=== PATIENT | female | born 1980 | race Caucasian/White ===

== ENCOUNTER 2020-06-03 06:01 | Day surgery (SDC) | payer MEDICAID, SELFPAY ==
--- NOTE | 2020-04-12 17:25 | PCM.HPOB.BLA ---
- Problem List (1) Menorrhagia Status: Acute History and Physical Date of Admission: 04/15/20 DATE OF SERVICE: April 07, 2020 ? PROBLEM:?Menorrhagia ? DIAGNOSIS:?Menorrhagia ? SUBJECTIVE:?Taking Aygestin 5 mg once daily. Having to change pad q 2 hours?still. She describes the bleeding as heavy.? ? 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 Not sexually active.? EMB:? FINAL DIAGNOSIS Endometrial biopsy - Clotted blood and extensively fragmented proliferative endometrium with breakdown. - Fragmentation and the limited quantity of endometrium precludes a more specific classification. ? ? Pelvic US: Impression Normal appearing anteverted uterus that measures 109 mm x 57 mm x 65 mm. The central endometrium complex measures 21.3 mm in combined thickness. No abnormal blood flow to suggest a polyp or focal endometrial pathology is observed within the endometrial complex. The contour of the endometrial cavity was normal on 3-D imaging. No IUD visualized. The right ovary is not visualized. The left ovary is normal appearing. There is no free fluid visualized in the peritoneal cavity. ` Recommendations Consider endometrial sampling given EMS 21.3 mm. IUD is not visualized. Clinical correlation recommended. ? PAST SURGICAL HISTORY:? PAST SURGICAL HISTORY PAST SURGICAL HISTORY Procedure Laterality Date ? KNEE SURGERY HX Right ? ? MIRENA IUD ? 10/30/2019 ? Expelled on 01/15/20 ? NASAL SURGERY PROCEDURE ? PAST MEDICAL HISTORY:? PAST MEDICAL HISTORY PAST MEDICAL HISTORY Diagnosis Date ? NEGATIVE MEDICAL HISTORY ? ? ? SOCIAL HISTORY:? SOCIAL HISTORY Social History ? Tobacco Use ? Smoking status: Never Smoker ? Smokeless tobacco: Never Used Substance Use Topics ? Alcohol use: Never ? Drug use: Never ? ? Allergies: No Known Allergies ? Current Outpatient Medications on File Prior to Visit Medication Sig ? ferrous sulfate 325 mg (65 mg iron) tablet Take 1 tablet by mouth twice daily. ? VITAMIN C 500 mg tablet Take 500 mg by mouth twice daily. ? calcium carbonate (CALCIUM 300 ORAL) Take by mouth. ? No current facility-administered medications on file prior to visit. ? ? ? OBJECTIVE: ? VITALS: BP 120/80 ? Pulse 97 ? Resp 18 ? Ht 5' 6 (1.676 m) ? Wt (!) 313 lb (142 kg) ? LMP 03/26/2020 ? BMI 50.52 kg/m? ? HEENT: ?Normocephalic, atraumatic, Mucus membranes moist without lesions. ? NECK: ???Soft and Supple. ?No adenopathy , thyromegaly or bruits. ? SKIN: No lesions. ? CHEST: Clear to auscultation. ?No wheezes or rales. ?Good air exchange. ? HEART: Regular rate and rhythm ?No S3 or S4. ?No gallops or rubs. ? BACK: Nontender with no CVA tenderness. ? ABDOMEN: Soft, non-tender, non-distended, no masses, no hepatosplenomegaly. ? LOWER EXTREMITIES: There was no pitting edema, no palpable cords and no skin changes. ? ? ? ASSESSMENT:?menorrhagia ? PLAN:?Discussed hysteroscopy, D&C, ablation, laparoscopy bilateral salpingectomy. Discussed that a tubal ligation is permanent and irreversible. She is 100% certain that she does not want children in the future. Discussed that with an ablation hyperplasia or cancer could be missed. She understands that given her BMI she is at increased risk for hyperplasia and cancer. She understands that in the future if she has any bleeding, it could be difficult to diagnose hyperplasia or cancer after an ablation given adhesions and scarring. The patient declines and IUD as she has previously expelled one. The patient does not want a hysterectomy at this time. Discussed possible polypectomy or fibroid removal at the time of surgery if needed.?The rationale for the proposed surgery was discussed in addition to risks, benefits, and alternatives. ?General pre- and post-operative care was reviewed. ?Questions were answered. ?After discussion, the patient indicated a desire to proceed with the planned surgery. ? Kylah Xiao,?DO
[2020-06-02 13:29] LABS: Hematocrit 47.6 % (37-47); Hemoglobin 13.9 g/dL (12.0-15.0); Mean Corp Hgb Conc 29.2 g/dL (32-36); Mean Corpuscular Hgb 25.7 pg (27.0-32.0); Mean Platelet Vol. 11.5 fl (6.2-12.0); Platelet Count 376 K/mm3 (150-450); RBC Distribution Width CV 13.9 % (11.6-14.6); RBC Distribution Width SD 44.9 fl (35.1-43.9); Red Blood Count 5.41 M/mm3 (4.2-5.4)
[2020-06-02 13:40] LABS: Prothrombin Time (Protime)PT. 12.9 SECONDS (11.7-14.9)
[2020-06-02 13:59] LABS: Anion Gap 6 (5-15); BUN 22 mg/dL (7-18); BUN/Creat Ratio 30.6 RATIO (10-20); Calcium,Total 9.2 mg/dL (8.5-10.1); Chloride 105 mmol/L (98-107); Creatinine, Serum 0.72 mg/dL (0.55-1.02); EST Glomerular Filtration Rate 95 mL/min (>60); Est Glom Filt Rate - Afr Amer 115 mL/min (>60); Glucose 100 mg/dL (74-106); Potassium 3.8 mmol/L (3.5-5.1); Sodium Level 139 mmol/L (136-145); Thyroid Stim Hormone (TSH) 1.12 uIU/mL (0.358-3.74)
[2020-06-03] VITALS (11 sets, daily range): BP systolic 132–175; BP diastolic 82–112; PULSE 71–80; RESP 16–18; TEMP 35.9–36.9; O2SAT 98–100; BMI 48.7
[2020-06-03 06:32] LABS: Internal QC Validated? YES +Cl - CLEAR BKGD; Pregnancy, Urine Negative Negative
[2020-06-03] MEDS: Lactated Ringers 1,000 ML 100 ML IV (07:02)
--- NOTE | 2020-06-03 07:26 | DCINST_ITS ---
Discharge Diet: No Restrictions Discharge Activity: May Not Drive - for at least 24 hours after surgery, May Shower May resume sexual activity in: 1 week - no intercourse, tampons, hot tubs, tub baths for 1 week Weight Bearing Status: Weight bearing as tolerated Lifting Restrictions: None Call your doctor if you observe: Fever of 101 or Higher, Inability to urinate, Inability to have a bowel movement, Using more than one pad per hour, Shortness of breath, Dizziness, Fainting spells, Swelling in the ankles, Chest pain, Increased palpitations (irregular heartbeat), Calf discomfort, Uncontrolled pain Allergies/Adverse Reactions: Allergies No Known Allergies Allergy (Verified 06/03/20 06:52) Medications to take at Discharge Ascorbic Acid [Vitamin C] 500 mg PO DAILY 06/01/20 Ferrous Sulfate [Ferosul] 325 mg PO DAILY 06/01/20 Levothyroxine [Synthroid] 88 mcg PO DAILY 06/01/20 Lisinopril/Hydrochlorothiazide [Lisinopril-Hctz 10-12.5 mg Tab] 1 ea PO DAILY 06/01/20 [facility] - Test Results: Test results from this visit will be discussed in further detail at your follow- up appointment, if applicable. Please Follow Up With: Kylah Xiao DO When: 1 week
--- NOTE | 2020-06-03 07:30 | EMB_PTH ---
PATIENT: MARU YEAGER LOC: [facility] [place] U#:[id number] AGE/SX: 40/F ROOM: RE06/03/[address]: Dr. Kylah Xiao DO : 1980 BED: DIS: 06/03/2020 SPEC #: [id number] RECD: 06/03/20 09:03 STATUS: LILI ERICK #: [id number] DAVINA: 06/03/20 07:[address]: Kylah Xiao DEPT: SURGICAL PATHOLOGY RECD BY: Sarah Loza ENTERED: 06/03/20 10:41 SP TYPE: ENDOMartina BX/C SAHIL DR: Madonna Bauer, COMMERCIAL APPRAISER-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 Fragments of benign ecto- and endocervical mucosa with chronic inflammation and squamous metaplasia. See comment. KOTA:tip 06/04/2020 COMMENT Focal morular metaplasia is also noted. A few of the fragments show polypoid appearance and may represent fragments of benign endometrial polyp. Clinical correlation and appropriate follow up are necessary. This case is discussed with Dr. Xiao on 06/10/2020. MICROSCOPIC DESCRIPTION Slides are reviewed. GROSS DESCRIPTION Received in fixative is one container labeled with the patient's name and designated endometrial curettings. The specimen consists of multiple fragments of pink hemorrhagic soft tissue that in aggregate measure 3 x 2.5 x 0.3 cm. The specimen is totally submitted in one cassette. / Grady 06/03/2020 TC:5 CPT: 84125
[2020-06-03] MEDS: Lidocaine 1%/Epi 1:200 (30ml) 30 ML AMPUL (07:44)
[2020-06-03] MEDS: Lubricating Jelly 60 GM Tube 30 GM TOPICAL (07:44)
--- NOTE | 2020-06-03 08:45 | PCM.OPRPT ---
Problem List (1) Menorrhagia Status: Acute Report of Operation Date of Procedure: 06/03/20 Pre-Operative Diagnosis: Menorrhagia Post-Operative Diagnosis: Menorrhagia, uterine polyp Surgery/Procedure Performed:: Hysteroscopy, Symphion polypectomy, D&C, Noreen ablation, Mirena IUD insertion Description of Surgical Findings:: A small polyp was noted at the right uterine cornua. The endometrial lining was moderately thick. The uterine cavity was otherwise normal appearing and bilateral tubal ostia were visualized. The uterus sounded to 11 cm and the cervical length was 6 cm. The uterine cavity was 5 cm. The hymen appeared intact. The introitus was narrow. No descent of uterus and cervix. Type of Anesthesia:: MAC Special Medications: None Specimen's removed: Uterine polyp and endometrial curettings Drains: None Estimated Blood Loss (mL): < 50 cc Fluids Replaced: 550 cc fluid deficit Description of Procedure: She was taken to the operating room where MAC anesthesia was found to be adequate. She was prepped and draped in the dorsal lithotomy position using yellowfin stirrups. A right angle retractor was placed in the vagina to expose the cervix. The cervix was grasped with a single-tooth tenaculum. The cervix was serially dilated to accommodate the hysteroscope. The diagnostic hysteroscope was advanced to the fundus of the uterus and distended with normal saline. A small polyp was noted at the right uterine cornua. The hysteroscope was then removed. The Symphion hysteroscope was then advanced into the fundus of the uterus, and the uterus was distended with normal saline. The small polyp was resected using the Symphion resection device. The polyp was sent to pathology for review. The rest of the cavity was normal-appearing. There were no other polyps or fibroids noted. Bilateral tubal ostia were visualized. The Symphion hysteroscope was then removed. A sharp curettage was performed and the endometrial curettings were sent to pathology for review. The uterus sounded to 11 cm and the cervical length was 6 cm. Uterine cavity was 5 cm. The Noreen ablation device was set to a cavity length of 5 cm. The Noreen ablation device was advanced to the fundus of the uterus. The Noreen device passed the cavity assessment test. Once the device was deployed and completed the ablation, the device was removed. A Mirena IUD was inserted in usual fashion and the strings were cut to 2 cm in length. Bleeding was hemostatic. All instruments removed from the vagina. Vaginal sweep was performed. Instrument sponge counts were correct. Patient was taken recovery in stable condition. Grafts/Implants Used: Mirena IUD - Complications None - Admit VTE Documentation VTE Present on Admission: No VTE Mechan Device Prophylaxis: SCD's
== END 2020-06-03 12:26 | disposition home or self-care (01) ==
LOC: SDC 06:01 → AC 06:01
PROVIDERS: Anesthesiology; Referring Provider Obstetrics & Gynecology; Visit Provider Obstetrics & Gynecology
PROC: 0U5B8ZZ Destruction of Endometrium, Via Natural or Artificial Opening Endoscopic (ICD-10-PCS; CPT 58558; principal; 2020-06-03 07:15)
DX: N92.0 Excessive and frequent menstruation with regular cycle (principal); N84.0 Polyp of corpus uteri; Z30.430 Encounter for insertion of intrauterine contraceptive device; I10 Essential (primary) hypertension; E06.9 Thyroiditis, unspecified; Z79.899 Other long term (current) drug therapy; Z20.822 Contact with and (suspected) exposure to COVID-19
CPT/HCPCS: 58300; 58563; 36415; 80048; 81025; 84443; 85027; 85610; 85730; 86850; 86900; 86901; 87426; 88305; C9803; J7120; A4216; J2405